=== PATIENT | female | born 1960 | race Asian ===

== ENCOUNTER 2016-08-19 07:25 | Emergency (ER) | payer MEDICAID ==
[~2016-08-19] VITALS: Ht 167.6 cm; Wt 61.2 kg
[2016-08-19 07:25] VITALS: BP 109/70; PULSE 72; RESP 16; TEMP 98.3; O2SAT 99
--- NOTE | 2016-08-19 07:25 | NUR ---
Patient to ER bed 7 to gown for evaluation. Side rails up. Report given to JUAN PABLO Harrell.
--- NOTE | 2016-08-19 07:42 | NUR ---
Pt. to ER AA[facility]4 for fall injury to left knee. As per pt. she [place], states that she fell on her left side, minor scratches, abrasions to the left knee, states that she thought she was fine yesterday but woke up this morning her knee pain had gotten worse, 8/10 on movement, LROM of the affected extremity, no deformity, no hematoma, no redness to left knee, stable
--- NOTE | 2016-08-19 08:10 | NUR ---
dr. luu at bedside examining the pt.
[2016-08-19 09:00] VITALS: BP 110/72; PULSE 71; RESP 16; TEMP 98.3; O2SAT 99
--- NOTE | 2016-08-19 09:00 | NUR ---
Patient given written and verbal discharge instructions and verbalizes understanding. ER MD discussed with patient the results and treatment provided. Patient in stable condition. ID arm band removed. No Rx given. Patient educated on pain management and to follow up with PMD. Pain Scale 2/10. Opportunity for questions provided and answered.
== END 2016-08-19 09:00 | disposition home or self-care (01) ==
LOC: SED 07:25
DX: S76.112A Strain of left quadriceps muscle, fascia and tendon, initial encounter (principal); W19.XXXA Unspecified fall, initial encounter; Y93.89 Activity, other specified; Y92.89 Other specified places as the place of occurrence of the external cause; Y99.8 Other external cause status
CPT/HCPCS: 73564; 99284